=== PATIENT | female | born 1995 | race Caucasian/White ===

== ENCOUNTER → 2019-04-27 | Outpatient (CLI) | payer BC | LOC: COL.RAD 15:40 | DX: N94.12 Deep dyspareunia (principal); Z97.5 Presence of (intrauterine) contraceptive device ==

== ENCOUNTER 2020-02-29 07:59 | Emergency (ER) | payer OTHER, BC ==
[~2020-02-29] VITALS: Ht 160 cm; Wt 97.7 kg
[2020-02-29 08:05] VITALS: TEMP 97.7
[2020-02-29 09:30] VITALS: BP 126/89; PULSE 72
== END 2020-02-29 09:30 | disposition home or self-care (01) ==
LOC: COL.ER 07:59
DX: S61.211A Laceration without foreign body of left index finger without damage to nail, initial encounter (principal); Y28.1XXA Contact with knife, undetermined intent, initial encounter; Y92.59 Other trade areas as the place of occurrence of the external cause; Y99.0 Civilian activity done for income or pay

== ENCOUNTER 2020-03-12 11:08 | Outpatient (RCR) | payer OTHER | END 2020-05-19 | disposition home or self-care (01) | LOC: WSOH | DX: Z48.02 Encounter for removal of sutures (principal); S61.211A Laceration without foreign body of left index finger without damage to nail, initial encounter; J45.909 Unspecified asthma, uncomplicated; Y99.0 Civilian activity done for income or pay ==